=== PATIENT | female | born 1985 | race Caucasian/White ===

== ENCOUNTER 2020-09-23 17:12 | Emergency (ER) | payer MEDICAID ==
[~2020-09-23] VITALS: Ht 165.1 cm; Wt 62.1 kg
[2020-09-23 17:18] VITALS: BP_SYST 124
--- NOTE | 2020-09-23 17:27 | NUR ---
Patient to ER bed 08 to gown for evaluation. Side rails up.
--- NOTE | 2020-09-23 17:30 | NUR ---
PATIENT BROUGHT IN AMBULATORY COMPLAINING OF VAGINAL BLEEDING STARTING THIS MORNING. PATIENT DENIES SATURATING ANY PADS. REPORTS HAVING ABDOMINAL CRAMPING TODAY. PATIENT REPORTS THIS IS HER FIRST . DENIES ANY URINARY FREQUENCY OR DYSURIA. DENIES ANY PAIN NOW. PATIENT SITTING COMFORTABLY IN CHAIR.
--- NOTE | 2020-09-23 18:13 | NUR ---
PHLEB AT BEDSIDE FOR BLOOD DRAW.
[2020-09-23 18:37] LABS: BASOPHILS % (AUTO) 0.5 % (0.0-2.0); EOSINOPHILS # (AUTO) 0.1 K/uL (0.0-0.4); EOSINOPHILS % (AUTO) 1.1 % (0.0-4.0); HEMATOCRIT 39.7 % (36-48); HEMOGLOBIN 13.3 g/dL (12.0-16.0); LYMPHOCYTES # (AUTO) 2.1 K/uL (1.0-5.5); LYMPHOCYTES % (AUTO) 26.8 % (20.5-51.5); MEAN CORPUSCULAR HEMOGLOBIN 29 pg (27-31); MEAN CORPUSCULAR HGB CONC 33 % (32-36); MEAN CORPUSCULAR VOLUME 87 fL (79.0-98.0); MONOCYTES # (AUTO) 0.6 K/uL (0.0-1.0); MONOCYTES % (AUTO) 8.1 % (1.7-9.3); NEUTROPHILS % (AUTO) 63.5 % (40.0-70.0); PLATELET COUNT (AUTO) 179 K/uL (130-430); RED BLOOD CELL COUNT(AUTO) 4.56 MIL/uL (4.2-6.2); RED CELL DISTRIBUTION WIDTH 14.9 % (9.0-15.0); WHITE BLOOD COUNT (AUTO) 7.9 K/uL (4.8-10.8)
[2020-09-23 18:46] LABS: BILIRUBIN,URINE NEGATIVE (NEGATIVE); BLOOD, URINE 3+ (NEGATIVE); COLOR,URINE YELLOW (YELLOW); GLUCOSE,URINE NEGATIVE (NEGATIVE); KETONES,URINE NEGATIVE (NEGATIVE); LEUKOCYTE ESTERASE ,URINE TRACE (NEGATIVE); NITRITE, URINE NEGATIVE (NEGATIVE); PH,URINE 5.5 (5.0-8.0); PROTEIN URINE NEGATIVE (NEGATIVE); UROBILINOGEN,URINE 0.2 (0.2-1.0)
[2020-09-23 18:50] LABS: INR 0.9 (0.8-1.2); PROTHROMBIN TIME 9.7 SECS (9.5-12.5)
[2020-09-23 18:51] LABS: CLARITY/URINE HAZY (CLEAR)
--- NOTE | 2020-09-23 19:10 | NUR ---
Received endorsement from BOB Zaidi, JANE, breathing spontaneously at room air, not in distress noted. vital signs taken and recorded, stable, no active PV bleeding as claimed.
[2020-09-23 19:27] LABS: RBC,URINE >100 /HPF (0-3)
[2020-09-23 19:28] LABS: BACTERIA,URINE MODERATE /HPF (None Seen); MUCUS,URINE 1+ /LPF (None Seen)
--- NOTE | 2020-09-23 19:52 | NUR ---
Re-assesed by Dr. Sim, ultrasound reviewed and for discharge
[2020-09-23 20:07] VITALS: BP_SYST 122
--- NOTE | 2020-09-23 20:07 | NUR ---
Patient given written and verbal discharge instructions and verbalizes understanding. ER MD discussed with patient the results and treatment provided. Patient in stable condition. ID arm band removed. Patient educated on pain management and to follow up with PMD. Pain Scale 0/10. Opportunity for questions provided and answered. Medication side effect fact sheet provided.
== END 2020-09-23 20:07 | disposition home or self-care (01) ==
LOC: SED 17:12
DX: O20.9 Hemorrhage in early pregnancy, unspecified (principal); Z3A.01 Less than 8 weeks gestation of pregnancy
CPT/HCPCS: 36415; 76801; 76817; 81000-TC; 81025; 84702-TC; 85025; 85610-TC; 85730-TC; 86900; 86901; 87086; 99284

== ENCOUNTER 2020-09-26 13:55 | Emergency (ER) | payer MEDICAID ==
[~2020-09-26] VITALS: Ht 165.1 cm; Wt 61.7 kg
[2020-09-26 14:18] VITALS: BP_SYST 113
[2020-09-26 16:08] LABS: BASOPHILS % (AUTO) 0.5 % (0.0-2.0); EOSINOPHILS # (AUTO) 0.1 K/uL (0.0-0.4); EOSINOPHILS % (AUTO) 1.4 % (0.0-4.0); HEMOGLOBIN 12.9 g/dL (12.0-16.0); LYMPHOCYTES # (AUTO) 1.8 K/uL (1.0-5.5); LYMPHOCYTES % (AUTO) 25.5 % (20.5-51.5); MEAN CORPUSCULAR HEMOGLOBIN 29 pg (27-31); MEAN CORPUSCULAR HGB CONC 34 % (32-36); MEAN CORPUSCULAR VOLUME 86 fL (79.0-98.0); MONOCYTES # (AUTO) 0.6 K/uL (0.0-1.0); MONOCYTES % (AUTO) 8.5 % (1.7-9.3); NEUTROPHILS # (AUTO) 4.5 K/uL (1.8-7.7); NEUTROPHILS % (AUTO) 64.1 % (40.0-70.0); PLATELET COUNT (AUTO) 165 K/uL (130-430); RED BLOOD CELL COUNT(AUTO) 4.41 MIL/uL (4.2-6.2)
[2020-09-26 16:12] LABS: CALCIUM 8.7 mg/dL (8.4-11.0); CREATININE 0.74 mg/dL (0.55-1.30); POTASSIUM 3.7 mmol/L (3.5-5.1)
[2020-09-26 16:24] LABS: ALBUMIN 3.9 g/dL (3.4-4.8); TOTAL BILIRUBIN 0.2 mg/dL (0.0-1.0)
[2020-09-26 17:16] VITALS: BP_SYST 111
== END 2020-09-26 17:16 | disposition home or self-care (01) ==
LOC: SED 13:55
DX: O20.0 Threatened abortion (principal); Z3A.01 Less than 8 weeks gestation of pregnancy
CPT/HCPCS: 36415; 76801; 76817; 80053; 84702-TC; 85025; 99284